=== PATIENT | female | born 1970 | race Two or more races ===

== ENCOUNTER 2024-03-21 13:02 | Emergency (ER) | payer SELFPAY ==
[2024-03-21 13:34] VITALS: BMI 22.3
[2024-03-21] MEDS ORDERED: ACETAMINOPHEN 325 MG TABLET (FP) ONE (14:23)
[2024-03-21] MEDS ORDERED: LIDOCAINE 4% PATCH TP ONE (14:23)
[2024-03-21] MEDS ORDERED: METHOCARBAMOL 500 MG TABLET ONE (14:23)
[2024-03-21] MEDS: METHOCARBAMOL 500 MG TABLET PO ONE (14:32)
[2024-03-21] MEDS: LIDOCAINE 4% PATCH TP ONE (14:32)
[2024-03-21] MEDS: ACETAMINOPHEN 500 MG TABLET (FP) PO ONE (14:32)
[2024-03-21] MEDS ORDERED: KETOROLAC TROMETHAMINE 30 MG/1 ML VIAL ONE (16:34)
[2024-03-21] MEDS: KETOROLAC TROMETHAMINE 30 MG/1 ML VIAL IM ONE (16:40)
[2024-03-21] MEDS ORDERED: morphine SULFATE 4 MG/ML VIAL ONE (18:33)
[2024-03-21] MEDS: morphine CARPU-JECT 4 MG/1 ML DISP.SYRIN IVPUSH ONE (18:46)
[2024-03-21 19:06] LABS: BASO % 0.5 % (0-2.0); EOS % 0.4 % (0-4.5); HEMATOCRIT 37.9 % (32.4-45.2); HEMOGLOBIN 12.6 GM/dL (10.7-15.3); MCH 29.4 pg (25.7-33.7); MCHC 33.2 g/dl (32.0-36.0); MEAN CELL VOLUME 88.5 fl (80-96); MONO % 7.8 % (3.8-10.2); NEUT % 60.3 % (42.8-82.8); PLATELET COUNT 307 10^3/uL (134-434); RBC 4.28 M/mm3 (3.60-5.2); RDW 13.9 % (11.6-15.6); WHITE BLOOD COUNT 7.6 K/mm3 (4.0-10.0)
[2024-03-21 19:20] LABS: POTASSIUM 4.3 mmol/L (3.5-5.1)
[2024-03-21 19:22] LABS: CALCIUM 9.5 mg/dL (8.5-10.1)
[2024-03-21 19:23] LABS: ALBUMIN 3.9 g/dl (3.4-5.0); BLOOD UREA NITROGEN 6.3 mg/dL (7-18)
[2024-03-21 19:26] LABS: CREATININE 0.7 mg/dL (0.55-1.3)
[2024-03-21 19:28] LABS: BILIRUBIN,TOTAL 0.4 mg/dL (0.2-1); TOT PROT 7.3 g/dl (6.4-8.2)
[2024-03-21] MEDS ORDERED: DEXAMETHASONE SOD PHOSPHATE 10 MG/1 ML VIAL ONE (20:24)
[2024-03-21] MEDS: DEXAMETHASONE SOD PHOSPHATE 10 MG/1 ML VIAL IVPUSH ONE (20:29)
[2024-03-21 21:01] VITALS: PULSE 69; RESP 18
[2024-03-21] MEDS ORDERED: ONDANSETRON 4 MG/2 ML VIAL ONE (21:06)
[2024-03-21] MEDS: ONDANSETRON 4 MG/2 ML VIAL IVPB ONE (21:11)
[2024-03-21] MEDS: DEXTROSE 5%-NORMAL SALINE 1,000 ML IV ONE (21:57)
[2024-03-21] MEDS: LIDOCAINE PATCH REMOVAL MC ONE (22:24)
[2024-03-21] MEDS: SODIUM CHLORIDE 0.9% 500 ML INFUS.BAG IV ONE (23:39)
[2024-03-21] MEDS ORDERED: METOCLOPRAMIDE HCL INJECTION 10 MG/2 ML VIAL ONE (23:53)
[2024-03-22] MEDS: METOCLOPRAMIDE HCL INJECTION 10 MG/2 ML VIAL IVPB ONE (00:01)
[2024-03-22 03:26] VITALS: BP 156/81; TEMP 97.2
== END 2024-03-22 04:00 | disposition home or self-care (01) ==
LOC: JER 13:02 → UNDOADMOB 03-22 01:54 → JERBED 03-22 01:54 → JER 03-22 04:00
PROC: 3E033NZ Introduction of Analgesics, Hypnotics, Sedatives into Peripheral Vein, Percutaneous Approach (ICD-10-PCS; 2024-03-21)
PROC: 3E033GC Introduction of Other Therapeutic Substance into Peripheral Vein, Percutaneous Approach (ICD-10-PCS; 2024-03-21)
PROC: 3E0337Z Introduction of Electrolytic and Water Balance Substance into Peripheral Vein, Percutaneous Approach (ICD-10-PCS; 2024-03-21)
PROC: 3E0133Z Introduction of Anti-inflammatory into Subcutaneous Tissue, Percutaneous Approach (ICD-10-PCS; 2024-03-21)
PROC: 3E033GC Introduction of Other Therapeutic Substance into Peripheral Vein, Percutaneous Approach (ICD-10-PCS; principal; 2024-03-22)
DX: M51.16 Intervertebral disc disorders with radiculopathy, lumbar region (principal); R11.2 Nausea with vomiting, unspecified
CPT/HCPCS: 36415; 72131-TC; 80053; 85025; 93005; 93010; 99285-25